=== PATIENT | female | born 1970 | race Caucasian/White ===

== ENCOUNTER → 2024-05-17 12:41 | Outpatient (REF) | payer BC, SELFPAY | LOC: HWWDC 12:41 | PROVIDERS: ATTENDING PHYSICIAN Family Medicine | DX: Z12.31 Encounter for screening mammogram for malignant neoplasm of breast (principal) | CPT/HCPCS: 77063; 77067 ==

== ENCOUNTER 2024-08-31 06:29 | Day surgery (SDC) | payer BC, SELFPAY ==
[2024-08-31 07:39] LABS: Glucose - Point of Care 145 mg/dl (70-99)
== END 2024-08-31 10:01 | disposition home or self-care (01) ==
LOC: GI 06:29
PROVIDERS: ATTENDING PHYSICIAN Internal Medicine Gastroenterology
DX: Z12.11 Encounter for screening for malignant neoplasm of colon (principal); K57.30 Diverticulosis of large intestine without perforation or abscess without bleeding; K64.8 Other hemorrhoids; K44.9 Diaphragmatic hernia without obstruction or gangrene; K31.89 Other diseases of stomach and duodenum; Z83.719 Family history of colon polyps, unspecified; Z13.810 Encounter for screening for upper gastrointestinal disorder
CPT/HCPCS: 43239; G0105; 88305; 82962; 88342